=== PATIENT | female | born 1960 | race Caucasian/White ===

== ENCOUNTER 2017-10-06 08:56 | Day surgery (SDC) | payer OTHER ==
[2017-09-30 09:24] VITALS: BMI 31.1
[2017-10-06] MEDS ORDERED: KETOROLAC TROMETHAMINE 30 MG/1 ML VIAL ONE (10:39)
[2017-10-06] MEDS ORDERED: MIDAZOLAM HCL 2 MG/2 ML SINGLE DOSE VIAL ONE (10:45)
[2017-10-06 11:29] VITALS: TEMP 98.2
[2017-10-06 11:58] VITALS: BP 108/58; PULSE 72
--- NOTE | 2017-10-11 18:51 | OP ---
DATE OF OPERATION: 10/06/2017 PREOPERATIVE DIAGNOSIS: Right carpal tunnel syndrome. POSTOPERATIVE DIAGNOSIS: Right carpal tunnel syndrome. OPERATIVE PROCEDURE: Right carpal tunnel release. ANESTHESIA: Local with sedation. COMPLICATIONS: None. ESTIMATED BLOOD LOSS: Minimal. INDICATION FOR PROCEDURE: The patient is a 56-year-old female with the above finding, indicated for operative treatment. Risks, benefits, and alternatives were discussed with at length. Proper informed consent was obtained. PROCEDURE: After proper identification of the patient and the correct operative site, patient was brought to the operating room and placed supine on the operative table. All prominences were well padded. Sedation was given by the anesthesiologist. Local anesthesia was given with 2% lidocaine. The right upper extremity was prepped and draped in the usual sterile fashion. A well-padded tourniquet was placed with a sterile prep. Esmarch bandage was used to exsanguinate the right upper extremity. The tourniquet was inflated to 250 mmHg. A longitudinal incision was made over the volar aspect of the wrist. Incision was taken sharply through the skin. Blunt and sharp dissection was performed down through the subcutaneous tissues. Palmar fascia was divided longitudinally. Transcarpal ligament along with the distal 4 cm of the antebrachial fascia was divided longitudinally under direct visualization with loupe magnification. This provided complete release of the median nerve at the wrist. Wound was irrigated with saline and repaired with a 5-0 nylon suture. Sterile dressings were applied. Patient was brought to recovery room in stable condition. She tolerated the procedure well. Casey [id number]
== END 2017-10-06 13:00 | disposition home or self-care (01) ==
LOC: FASU 08:56
PROVIDERS: ATTEND Orthopaedic Surgery Hand Surgery
PROC: 01N50ZZ Release Median Nerve, Open Approach (ICD-10-PCS; principal; 2017-10-06 11:15)
DX: G56.01 Carpal tunnel syndrome, right upper limb (principal)